=== PATIENT | female | born 1980 | race Caucasian/White ===

== ENCOUNTER → 2016-10-29 | Outpatient (CLI) | payer OTHER ==
[~2016-10-29] MED LIST: ALPRAZOLAM0.5 M3 PO; ATIVAN0.5 MG PO; CATAPRES-TTS 10.1 MG PO; CIPRODEX 0.3%-7.5 ML OT; CLARITIN10 MG PO; CLEOCIN150 MG PO; CLINDAMYCIN150 MG PO; DEPAKOTE ER500 MG PO; HYDROCODONE BIT1 T11 PO; INVANZ1 GM IV; KLONOPIN0.5 MG PO; LATU40TA1 PO; LEXAPRO5 M1 PO; LITHIUM CARBON300 M2 PO; MACROBID100 M1 PO; MEDROL DOSEPAK4 MG PO; MELATONIN5 M2 PO; MIRALAX POWDER17 G1 PO; MOTRIN800 MG PO; Meclizine25 MG PO; NAPROSYN500 MG PO; NORCO 5-325 TA1 EACH PO; PERCOCET 325 MG1 TA2 PO; Peridex 473 ML473 ML PO; UNASYN 3GM3 GM/100 M IV; VALIUM5 MG PO; VICODIN 5/500 505 MG PO; VISTARIL50 MG PO; ZOFRAN ODT4 MG SL; ZOFRAN4 MG PO; ZOLPIDEM TARTRAT5 MG PO
[2016-10-29 14:53] LABS: BASO % 0.3 % (0.0-1.0); EOS # 0.2 10*3/uL (0.0-0.4); EOS % 1.5 % (1.0-4.0); HEMATOCRIT 39.5 % (37.0-47.0); HEMOGLOBIN 13.8 g/dl (12.0-16.0); LYMPH # 3.1 10*3/uL (1.3-4.4); LYMPH % 29.8 % (27.0-41.0); MEAN CORPUSCULAR HGB 31.1 pg (27.0-31.0); MEAN CORPUSCULAR HGB CONC 34.9 g/dl (33.0-37.0); MEAN PLATELET VOLUME 9.7 fl (9.6-12.3); MONO # 0.4 10*3/uL (0.1-1.0); MONO % 4.2 % (3.0-9.0); NEUT # 6.7 10*3/uL (2.3-7.9); PLATELET COUNT AUTOMATED 200 10*3/uL (130-400); RED BLOOD COUNT 4.44 10*6/uL (4.10-5.10); RED CELL DISTRI WIDTH 12.8 % (0-14.5); WHITE BLOOD COUNT 10.4 10*3/uL (4.8-10.8)
[2016-10-29 15:27] LABS: ALBUMIN 3.4 gm/dl (3.1-4.5); ALKALINE PHOSPHATASE 115 U/L (45-117); BUN 10 mg/dl (7-24); CHLORIDE 108 mmol/L (98-107); POTASSIUM 3.7 mmol/L (3.5-5.1); SGOT/AST 22 IU/L (3-35); SGPT/ALT 29 U/L (12-78); SODIUM 142 mmol/L (136-145); TOTAL PROTEIN 7.5 gm/dL (6.4-8.2)
[2016-10-29 16:14] LABS: VITAMIN D, 25-HYDROXY 32.7 ng/mL (30-100)
== END | disposition home or self-care (01) ==
LOC: LAB 14:32
PROVIDERS: Physician Assistant
DX: Z51.81 Encounter for therapeutic drug level monitoring (principal); E55.9 Vitamin D deficiency, unspecified; Z79.899 Other long term (current) drug therapy

== ENCOUNTER 2016-11-02 16:26 | Emergency (ER) | payer OTHER ==
[~2016-11-02] VITALS: Ht 175.2 cm; Wt 156.9 kg
[2016-11-02 16:31] VITALS: BP 170/90
[2016-11-02] MEDS ORDERED: ANAPROX DS550 MG PO (18:24)
== END 2016-11-02 18:22 | disposition home or self-care (01) ==
LOC: ED 16:26
DX: S00.83XA Contusion of other part of head, initial encounter (principal); F17.200 Nicotine dependence, unspecified, uncomplicated; Z88.1 Allergy status to other antibiotic agents; Z88.6 Allergy status to analgesic agent; Z79.899 Other long term (current) drug therapy; Y04.0XXA Assault by unarmed brawl or fight, initial encounter; Y93.89 Activity, other specified; Y92.89 Other specified places as the place of occurrence of the external cause; Y99.8 Other external cause status

== ENCOUNTER → 2017-05-27 | Outpatient (CLI) | payer OTHER ==
[~2017-05-27] MED LIST changes: +ANAPROX DS550 MG PO
== END | disposition home or self-care (01) ==
LOC: RAD 13:38
DX: M19.90 Unspecified osteoarthritis, unspecified site (principal)

== ENCOUNTER 2018-03-21 20:14 | Emergency (ER) | payer OTHER ==
[~2018-03-21] VITALS: Ht 175.2 cm; Wt 145.6 kg
[2018-03-21 20:17] VITALS: BP 118/76
[2018-03-21 20:34] LABS: BILIRUBIN NEGATIVE (NEGATIVE); BLOOD 2+ (NEGATIVE); CLARITY CLOUDY (CLEAR); COLOR YELLOW (YELLOW); GLUCOSE NEGATIVE (NEGATIVE); KETONE TRACE (NEGATIVE); LEUKO ESTERASE 3+ (NEGATIVE); NITRITE POSITIVE (NEGATIVE); PH 5.5 (5.0-9.0)
[2018-03-21 20:43] LABS: BACTERIA 2+; RBC 21-30 rbc/hpf (0-2); WBC TNTC wbc/hpf (0-5)
== END 2018-03-21 20:53 | disposition home or self-care (01) ==
LOC: ED 20:14
PROVIDERS: Student in an Organized Health Care Education/Training Program
DX: N39.0 Urinary tract infection, site not specified (principal); H92.01 Otalgia, right ear; M86.9 Osteomyelitis, unspecified; F43.12 Post-traumatic stress disorder, chronic; Z88.6 Allergy status to analgesic agent; Z88.1 Allergy status to other antibiotic agents; Z79.899 Other long term (current) drug therapy; Z87.891 Personal history of nicotine dependence

== ENCOUNTER 2018-05-20 10:02 | Emergency (ER) | payer OTHER ==
[~2018-05-20] VITALS: Ht 175.2 cm; Wt 151.5 kg
[2018-05-20 10:02] VITALS: BP 129/66
[2018-05-20] MEDS ORDERED: LITHIUM CARBON300 MG PO (10:10)
[2018-05-20] MEDS ORDERED: LITHIUM CARBON600 MG PO (10:10)
[2018-05-20] MEDS ORDERED: CORTISPORIN SUS10 ML OT (10:59)
[2018-09-26] MEDS ORDERED: CORTISPORIN SUS10 ML OT (11:57)
== END 2018-05-20 11:06 | disposition home or self-care (01) ==
LOC: ED 10:02
DX: T16.2XXA Foreign body in left ear, initial encounter (principal); F17.200 Nicotine dependence, unspecified, uncomplicated; Z88.1 Allergy status to other antibiotic agents; Z88.6 Allergy status to analgesic agent; Z79.899 Other long term (current) drug therapy; Z90.49 Acquired absence of other specified parts of digestive tract; X58.XXXA Exposure to other specified factors, initial encounter; Y93.89 Activity, other specified; Y92.89 Other specified places as the place of occurrence of the external cause; Y99.8 Other external cause status

== ENCOUNTER 2018-06-29 15:42 | Emergency (ER) | payer OTHER ==
[~2018-06-29] VITALS: Ht 175.2 cm; Wt 156.0 kg
[~2018-06-29 15:42] MED LIST changes: +CORTISPORIN SUS10 ML OT; +LITHIUM CARBON300 MG PO; +LITHIUM CARBON600 MG PO
[2018-06-29 15:44] VITALS: BP 150/82
[2018-06-29 16:02] LABS: BILIRUBIN NEGATIVE (NEGATIVE); BLOOD 3+ (NEGATIVE); CLARITY CLOUDY (CLEAR); COLOR YELLOW (YELLOW); GLUCOSE NEGATIVE (NEGATIVE); KETONE NEGATIVE (NEGATIVE); LEUKO ESTERASE 2+ (NEGATIVE); NITRITE NEGATIVE (NEGATIVE); UROBILINOGEN >= 8.0 E.U./dl (0.2-1.0)
[2018-06-29 16:09] LABS: BACTERIA 2+; RBC 31-40 rbc/hpf (0-2); WBC TNTC wbc/hpf (0-5)
[2018-06-29] MEDS ORDERED: CEFUROXIME AXE500 MG PO (16:25)
[2018-06-29] MEDS ORDERED: PYRIDIUM200 M1 PO (16:25)
[2018-09-26] MEDS ORDERED: CORTISPORIN SUS10 ML OT (11:57)
== END 2018-06-29 16:28 | disposition home or self-care (01) ==
LOC: ED 15:42
PROVIDERS: Nurse Practitioner Family
DX: N39.0 Urinary tract infection, site not specified (principal); F17.200 Nicotine dependence, unspecified, uncomplicated; Z88.1 Allergy status to other antibiotic agents; Z88.6 Allergy status to analgesic agent; Z79.899 Other long term (current) drug therapy; Z90.49 Acquired absence of other specified parts of digestive tract

== ENCOUNTER 2018-07-18 23:44 | Emergency (ER) | payer OTHER ==
[~2018-07-18] VITALS: Ht 175.2 cm; Wt 149.7 kg
[~2018-07-18 23:44] MED LIST changes: +CEFUROXIME AXE500 MG PO; +PYRIDIUM200 M1 PO
[2018-07-18 23:47] VITALS: BP 140/68
[2018-07-19] MEDS ORDERED: CORTISPORIN SUS10 ML OT (00:32)
[2018-09-26] MEDS ORDERED: CORTISPORIN SUS10 ML OT (11:57)
== END 2018-07-19 00:51 | disposition home or self-care (01) ==
LOC: ED 23:44
DX: T16.2XXA Foreign body in left ear, initial encounter (principal); F17.200 Nicotine dependence, unspecified, uncomplicated; Z88.1 Allergy status to other antibiotic agents; Z88.6 Allergy status to analgesic agent; Z79.899 Other long term (current) drug therapy; X58.XXXA Exposure to other specified factors, initial encounter; Y93.89 Activity, other specified; Y92.89 Other specified places as the place of occurrence of the external cause; Y99.8 Other external cause status

== ENCOUNTER 2018-10-06 22:38 | Emergency (ER) | payer OTHER ==
[~2018-10-06] VITALS: Ht 175.2 cm; Wt 149.7 kg
--- NOTE | ~2018-10-06 | EKG ---
[place], [place] ELECTROCARDIOGRAM REPORT NAME: TREMAINE HURST UNIT #: [id number] ROOM: DOCTOR: EPIPHANY DRAFT REPORT BIRTHDATE: [birth year] [facility] Test Date: 2018-10-06 Test Time: 22:51:03 Pat Name: TREMAINE HURST Department: ER Room: Gender: F Echocardiograph Technician: Shira Nguyen : 1980 Requested By: LISETH WONG Order Number: [id number] Reading MD: Cam Carlos MD Measurements Intervals [place] Rate: 84 P: 49 UT: 170 QRS: 56 QRSD: 82 T: 54 QT: 397 QTc: 470 Interpretive Statements Sinus rhythm Nonspecific ST T changes Electronically Signed On 10-10-2018 8:39:28 PDT by Cam Carlos MD CM:EKGRPT:ELECTROCARDIOGRAM REPORT [id number] LISETH GARCIA DRAFT REPORT LISETH WONG DO
[2018-10-06 23:34] LABS: BASO % 0.3 % (0.0-1.0); EOS # 0.1 10*3/uL (0.0-0.4); EOS % 1.3 % (1.0-4.0); HEMOGLOBIN 13.6 g/dl (12.0-16.0); LYMPH # 3.5 10*3/uL (1.3-4.4); LYMPH % 31.3 % (27.0-41.0); MEAN CELL VOLUME 91.8 fl (81.0-99.0); MEAN CORPUSCULAR HGB CONC 34.9 g/dl (33.0-37.0); MEAN PLATELET VOLUME 9.5 fl (9.6-12.3); MONO # 0.6 10*3/uL (0.1-1.0); MONO % 5.4 % (3.0-9.0); NEUT # 6.9 10*3/uL (2.3-7.9); NEUT % 61.4 % (47.0-73.0); PLATELET COUNT AUTOMATED 234 10*3/uL (130-400); RED BLOOD COUNT 4.25 10*6/uL (4.10-5.10); RED CELL DISTRI WIDTH 13.3 % (0-14.5); WHITE BLOOD COUNT 11.1 10*3/uL (4.8-10.8)
[2018-10-06 23:45] LABS: ACT PARTIAL THROMBO TIME 27.3 SECONDS (20.0-32.1); INTERNATIONAL NORM RATIO 0.9 (2.0-3.5)
[2018-10-06 23:50] LABS: ALBUMIN 3.2 gm/dl (3.1-4.5); ALKALINE PHOSPHATASE 117 U/L (45-117); BUN 12 mg/dl (7-24); CHLORIDE 106 mmol/L (98-107); CREATININE 0.84 mg/dL (0.55-1.02); POTASSIUM 3.8 mmol/L (3.5-5.1); SGOT/AST 19 IU/L (3-35); SGPT/ALT 23 U/L (12-78); SODIUM 139 mmol/L (136-145); TOTAL PROTEIN 7.3 gm/dL (6.4-8.2)
[2018-10-06 23:56] LABS: TROPONIN I < 0.015 ng/ml (<0.045)
[2018-10-07 00:21] VITALS: BP 134/84
== END 2018-10-07 01:26 | disposition home or self-care (01) ==
LOC: ED 22:38
PROVIDERS: Student in an Organized Health Care Education/Training Program
DX: R07.89 Other chest pain (principal); R11.2 Nausea with vomiting, unspecified; R42 Dizziness and giddiness; R51 Headache; R06.02 Shortness of breath; R68.83 Chills (without fever); M86.9 Osteomyelitis, unspecified; F41.9 Anxiety disorder, unspecified; F17.200 Nicotine dependence, unspecified, uncomplicated; Z79.899 Other long term (current) drug therapy; Z88.1 Allergy status to other antibiotic agents; Z88.6 Allergy status to analgesic agent

== ENCOUNTER 2018-10-09 01:27 | Emergency (ER) | payer OTHER ==
[~2018-10-09] VITALS: Wt 150.1 kg
[2018-10-09 01:28] VITALS: BP 183/85
[2018-10-09] MEDS ORDERED: CEPHALEXIN500 M1 PO (01:46)
[2018-10-09] MEDS ORDERED: ANTIBIOTIC28.4 GM T (01:46)
== END 2018-10-09 02:13 | disposition home or self-care (01) ==
LOC: ED 01:27
DX: L73.9 Follicular disorder, unspecified (principal); F17.200 Nicotine dependence, unspecified, uncomplicated; Z88.1 Allergy status to other antibiotic agents; Z88.6 Allergy status to analgesic agent; Z79.899 Other long term (current) drug therapy

== ENCOUNTER 2018-12-24 19:45 | Emergency (ER) | payer OTHER ==
[~2018-12-24] VITALS: Ht 175.2 cm; Wt 152.0 kg
[~2018-12-24 19:45] MED LIST changes: +ANTIBIOTIC28.4 GM T; +CEPHALEXIN500 M1 PO
[2018-12-24 20:33] LABS: BASO % 0.3 % (0.0-1.0); EOS # 0.2 10*3/uL (0.0-0.4); EOS % 1.6 % (1.0-4.0); HEMATOCRIT 38.3 % (37.0-47.0); LYMPH # 3.2 10*3/uL (1.3-4.4); LYMPH % 31.7 % (27.0-41.0); MEAN CELL VOLUME 92.7 fl (81.0-99.0); MEAN CORPUSCULAR HGB 31.5 pg (27.0-31.0); MEAN CORPUSCULAR HGB CONC 33.9 g/dl (33.0-37.0); MONO # 0.5 10*3/uL (0.1-1.0); MONO % 4.9 % (3.0-9.0); NEUT # 6.2 10*3/uL (2.3-7.9); NEUT % 61.2 % (47.0-73.0); PLATELET COUNT AUTOMATED 212 10*3/uL (130-400); RED BLOOD COUNT 4.13 10*6/uL (4.10-5.10); RED CELL DISTRI WIDTH 13.2 % (0-14.5); WHITE BLOOD COUNT 10.1 10*3/uL (4.8-10.8)
[2018-12-24 20:40] LABS: BILIRUBIN NEGATIVE (NEGATIVE); BLOOD NEGATIVE (NEGATIVE); CLARITY CLEAR (CLEAR); COLOR YELLOW (YELLOW); GLUCOSE NEGATIVE (NEGATIVE); KETONE NEGATIVE (NEGATIVE); LEUKO ESTERASE NEGATIVE (NEGATIVE); NITRITE NEGATIVE (NEGATIVE); PH 5.5 (5.0-9.0); SPECIFIC GRAVITY >= 1.030 (1.005-1.030); UROBILINOGEN 0.2 E.U./dl (0.2-1.0)
[2018-12-24 20:48] LABS: ALBUMIN 2.9 gm/dl (3.1-4.5); ALKALINE PHOSPHATASE 114 U/L (45-117); BUN 7 mg/dl (7-24); CHLORIDE 113 mmol/L (98-107); CREATININE 0.88 mg/dL (0.55-1.02); LIPASE 88 U/L (73-393); POTASSIUM 3.8 mmol/L (3.5-5.1); SGOT/AST 11 IU/L (3-35); SGPT/ALT 19 U/L (12-78); SODIUM 142 mmol/L (136-145); TOTAL PROTEIN 6.8 gm/dL (6.4-8.2)
[2018-12-24 20:53] LABS: BACTERIA 1+; WBC 0-2 wbc/hpf (0-5)
[2018-12-24 21:50] VITALS: BP 114/60
[2018-12-24] MEDS ORDERED: SEPTDS PO (22:21)
== END 2018-12-24 22:25 | disposition home or self-care (01) ==
LOC: ED 19:45
PROVIDERS: Nurse Practitioner Family
DX: J32.0 Chronic maxillary sinusitis (principal); F17.200 Nicotine dependence, unspecified, uncomplicated; Z98.890 Other specified postprocedural states; Z90.49 Acquired absence of other specified parts of digestive tract; Z86.14 Personal history of Methicillin resistant Staphylococcus aureus infection; Z79.899 Other long term (current) drug therapy; Z88.1 Allergy status to other antibiotic agents; Z88.6 Allergy status to analgesic agent

== ENCOUNTER 2018-12-26 11:53 | Emergency (ER) | payer OTHER ==
[~2018-12-26] VITALS: Ht 175.2 cm; Wt 149.7 kg
[~2018-12-26 11:53] MED LIST changes: +SEPTDS PO
[2018-12-26 11:55] VITALS: BP 165/82
[2018-12-26] MEDS ORDERED: ZOFRAN4 MG PO (12:12)
[2018-12-26] MEDS ORDERED: CLINDAMYCIN HC300 MG PO (12:12)
== END 2018-12-26 12:18 | disposition home or self-care (01) ==
LOC: ED 11:53
DX: K02.9 Dental caries, unspecified (principal); J01.00 Acute maxillary sinusitis, unspecified; M86.9 Osteomyelitis, unspecified; F17.200 Nicotine dependence, unspecified, uncomplicated; Z90.49 Acquired absence of other specified parts of digestive tract; Z88.1 Allergy status to other antibiotic agents; Z88.8 Allergy status to other drugs, medicaments and biological substances; Z79.2 Long term (current) use of antibiotics; Z79.899 Other long term (current) drug therapy

== ENCOUNTER → 2020-05-14 | Outpatient (CLI) | payer OTHER ==
[~2020-05-14] MED LIST changes: +CLINDAMYCIN HC300 MG PO
== END | disposition home or self-care (01) ==
LOC: RAD 11:40
PROVIDERS: ATTEND Family Medicine
DX: M51.37 Other intervertebral disc degeneration, lumbosacral region (principal); M85.88 Other specified disorders of bone density and structure, other site

== ENCOUNTER → 2021-02-20 | Outpatient (CLI) | payer OTHER ==
[2021-02-20 16:58] LABS: ALBUMIN 3.1 gm/dl (3.1-4.5); ALKALINE PHOSPHATASE 143 U/L (45-117); BUN 17 mg/dl (7-24); CHLORIDE 106 mmol/L (98-107); CHOLESTEROL 189 mg/dL (<200); CREATININE 0.78 mg/dL (0.55-1.02); GAMMA GLUTAMYL TRANSPEPTIDASE 46 U/L (5-55); IRON 83 ug/dL (50-170); LDL CHOLESTEROL 103 mg/dL (9-159); POTASSIUM 3.9 mmol/L (3.5-5.1); SGOT/AST 14 IU/L (3-35); SGPT/ALT 25 U/L (12-78); SODIUM 140 mmol/L (136-145); TOTAL IRON BINDING CAPACITY 285 ug/dl (250-450); TOTAL PROTEIN 8.2 gm/dL (6.4-8.2); TRIGLYCERIDES 306 mg/dl (<150)
[2021-02-20 16:58] LABS: BILIRUBIN Negative (Negative); BLOOD Negative (Negative); CLARITY Cloudy (Clear); COLOR Yellow (Yellow); GLUCOSE Negative (Negative); KETONE Trace (Negative); PH 5.5 (4.5-8.0); SPECIFIC GRAVITY >= 1.030 (1.001-1.030)
[2021-02-20 16:59] LABS: LEUKO ESTERASE 1+ (Negative); NITRITE Negative (Negative)
[2021-02-20 17:01] LABS: BACTERIA 3+
[2021-02-20 17:02] LABS: MUCOUS 1+
[2021-02-20 17:32] LABS: FERRITIN 151.6 ng/mL (10.0-291.0); VITAMIN D, 25-HYDROXY 29.4 ng/mL (30-100)
[2021-02-20 19:51] LABS: BASO % 0.3 % (0.0-1.0); EOS # 0.2 10*3/uL (0.0-0.4); EOS % 1.5 % (1.0-4.0); HEMATOCRIT 42.5 % (37.0-47.0); LYMPH # 3.6 10*3/uL (1.3-4.4); LYMPH % 30.4 % (27.0-41.0); MEAN CELL VOLUME 92.6 fl (81.0-99.0); MEAN CORPUSCULAR HGB 31.2 pg (27.0-31.0); MEAN CORPUSCULAR HGB CONC 33.6 g/dl (33.0-37.0); MONO # 0.4 10*3/uL (0.1-1.0); MONO % 3.7 % (3.0-9.0); NEUT # 7.5 10*3/uL (2.3-7.9); NEUT % 63.5 % (47.0-73.0); PLATELET COUNT AUTOMATED 271 10*3/uL (130-400); RED BLOOD COUNT 4.59 10*6/uL (4.10-5.10); RED CELL DISTRI WIDTH 13.2 % (0-14.5); RETICULOCYTE % 2.24 % (0.50-2.50); WHITE BLOOD COUNT 11.9 10*3/uL (4.8-10.8)
== END | disposition home or self-care (01) ==
LOC: LAB 15:55
PROVIDERS: ATTEND Family Medicine
DX: E55.9 Vitamin D deficiency, unspecified (principal); R79.89 Other specified abnormal findings of blood chemistry; R53.83 Other fatigue; R74.8 Abnormal levels of other serum enzymes; E78.5 Hyperlipidemia, unspecified

== ENCOUNTER 2022-03-11 20:15 | Emergency (ER) | payer OTHER ==
[~2022-03-11] VITALS: Ht 175.2 cm; Wt 146.5 kg
[2022-03-11 20:20] VITALS: BP 150/78
[2022-03-11] MEDS ORDERED: REXULTI3 MG PO (20:23)
[2022-03-11] MEDS ORDERED: NATURE'S BLEND F1 MG PO (20:23)
[2022-03-11] MEDS ORDERED: PRISTIQ50 MG PO (20:24)
[2022-03-11] MEDS ORDERED: VITAMIN D250 MCG PO (20:24)
== END 2022-03-11 22:27 | disposition home or self-care (01) ==
LOC: ED 20:15
DX: S80.11XA Contusion of right lower leg, initial encounter (principal); Z88.8 Allergy status to other drugs, medicaments and biological substances; Z79.899 Other long term (current) drug therapy; Z90.49 Acquired absence of other specified parts of digestive tract; Z98.890 Other specified postprocedural states; Z87.891 Personal history of nicotine dependence; X58.XXXA Exposure to other specified factors, initial encounter; Y93.89 Activity, other specified; Y92.89 Other specified places as the place of occurrence of the external cause; Y99.8 Other external cause status

== ENCOUNTER → 2023-05-27 | Outpatient (CLI) | payer OTHER ==
[~2023-05-27] MED LIST changes: +CIPRO500 MG PO; +NATURE'S BLEND F1 MG PO; +PRISTIQ50 MG PO; +REXULTI3 MG PO; +VITAMIN D250 MCG PO
== END | disposition home or self-care (01) ==
LOC: MAMMO 01:29
PROVIDERS: ATTEND Nurse Practitioner Women's Health
DX: Z12.31 Encounter for screening mammogram for malignant neoplasm of breast (principal); N64.9 Disorder of breast, unspecified; D25.9 Leiomyoma of uterus, unspecified; N83.292 Other ovarian cyst, left side

== ENCOUNTER 2023-08-29 10:53 | Emergency (ER) | payer OTHER ==
[~2023-08-29] VITALS: Ht 172.7 cm; Wt 149.7 kg
[2023-08-29 11:04] VITALS: BP 147/82
[2023-08-29] MEDS ORDERED: MORPHINE Sulfate 2 MG/ML SYR IV PRN (11:20)
[2023-08-29] MEDS ORDERED: SODIUM CHLORIDE 0.9% 1,000 ML IV ONE (11:20)
[2023-08-29] MEDS ORDERED: Ondansetron Hydrochloride 4 MG/2 ML VIAL IV ONE (11:20)
[2023-08-29 11:46] LABS: BASO % 0.2 % (0.0-1.0); EOS # 0.1 10*3/uL (0.0-0.4); EOS % 1.3 % (1.0-4.0); HEMATOCRIT 41.4 % (37.0-47.0); LYMPH # 3.2 10*3/uL (1.3-4.4); LYMPH % 30.3 % (27.0-41.0); MEAN CELL VOLUME 91.6 fl (81.0-99.0); MEAN CORPUSCULAR HGB CONC 33.8 g/dl (33.0-37.0); MEAN PLATELET VOLUME 9.1 fl (9.6-12.3); MONO # 0.4 10*3/uL (0.1-1.0); NEUT # 6.7 10*3/uL (2.3-7.9); NEUT % 63.8 % (47.0-73.0); PLATELET COUNT AUTOMATED 267 10*3/uL (130-400); RED BLOOD COUNT 4.52 10*6/uL (4.10-5.10); RED CELL DISTRI WIDTH 13.6 % (0-14.5); WHITE BLOOD COUNT 10.4 10*3/uL (4.8-10.8)
[2023-08-29] MEDS ORDERED: IOHEXOL 300 MG/ML 100 ML VIAL IV ONE (11:50)
[2023-08-29] MEDS ORDERED: IOHEXOL 300 MG/ML 100 ML VIAL ONE (12:02)
[2023-08-29 12:10] LABS: ALKALINE PHOSPHATASE 122 U/L (46-116); BUN 10 mg/dl (9-23); CHLORIDE 110 mmol/L (98-107); POTASSIUM 4.1 mmol/L (3.4-5.1); SGPT/ALT 17 U/L (5-49)
[2023-08-29] MEDS ORDERED: MELOXICAM15 MG PO ×2 (14:17→14:21)
[2023-08-29] MEDS ORDERED: CLINDAMYCIN HC300 MG PO (14:19)
[2023-08-29] MEDS ORDERED: CIPROFLOXACIN H10 ML OT (14:21)
== END 2023-08-29 14:20 | disposition home or self-care (01) ==
LOC: ED 10:53
PROVIDERS: Emergency Medicine
DX: H66.91 Otitis media, unspecified, right ear (principal); K04.7 Periapical abscess without sinus; H60.91 Unspecified otitis externa, right ear; F17.200 Nicotine dependence, unspecified, uncomplicated; F10.10 Alcohol abuse, uncomplicated; Z88.1 Allergy status to other antibiotic agents; Z88.6 Allergy status to analgesic agent; Z90.49 Acquired absence of other specified parts of digestive tract; Z98.890 Other specified postprocedural states

== ENCOUNTER 2023-09-27 13:27 | Inpatient (IN) | payer OTHER ==
[~2023-09-27] VITALS: Ht 175.2 cm; Wt 148.8 kg
[~2023-09-27 13:27] MED LIST changes: +CIPROFLOXACIN H10 ML OT; +MELOXICAM15 MG PO
[2023-09-27] MEDS ORDERED: SODIUM CHLORIDE 0.9% 1,000 ML IV ONE (13:30)
[2023-09-27] MEDS ORDERED: Midazolam Hydrochloride 2 MG/2 ML VIAL IV ONE (13:35)
[2023-09-27 13:39] VITALS: BP 129/86
[2023-09-27] MEDS ORDERED: XANAX1 MG PO (13:44)
[2023-09-27 13:45] LABS: BASO % 0.2 % (0.0-1.0); EOS # 0.1 10*3/uL (0.0-0.4); EOS % 0.9 % (1.0-4.0); LYMPH # 3.5 10*3/uL (1.3-4.4); LYMPH % 27.2 % (27.0-41.0); MEAN CELL VOLUME 89.9 fl (81.0-99.0); MEAN CORPUSCULAR HGB 31.4 pg (27.0-31.0); MEAN CORPUSCULAR HGB CONC 34.9 g/dl (33.0-37.0); MONO # 0.5 10*3/uL (0.1-1.0); MONO % 3.9 % (3.0-9.0); NEUT # 8.6 10*3/uL (2.3-7.9); NEUT % 67.3 % (47.0-73.0); PLATELET COUNT AUTOMATED 208 10*3/uL (130-400); RED BLOOD COUNT 4.56 10*6/uL (4.10-5.10); RED CELL DISTRI WIDTH 13.6 % (0-14.5); WHITE BLOOD COUNT 12.7 10*3/uL (4.8-10.8)
[2023-09-27 14:12] LABS: ALKALINE PHOSPHATASE 136 U/L (46-116); BUN 9 mg/dl (9-23); CHLORIDE 106 mmol/L (98-107); POTASSIUM 3.4 mmol/L (3.4-5.1); SGPT/ALT 19 U/L (5-49); TOTAL PROTEIN 7.3 gm/dL (6.0-8.0)
[2023-09-27] MEDS ORDERED: SODIUM CHLORIDE 0.9% 1,000 ML IV SCH (15:10)
[2023-09-27] MEDS ORDERED: ATORVASTATIN CALCIUM 80 MG TAB PO SCH ×2 (15:40→22:00)
[2023-09-27] MEDS ORDERED: HEPARIN SODIUM 25,000 UNITS/250 ML BAG IV SCH (15:40)
[2023-09-27] MEDS ORDERED: ASPIRIN, CHEWABLE 81 MG TAB PO ONE (15:40)
[2023-09-27] MEDS ORDERED: NITROGLYCERIN 1 IN PACKET T SCH (15:40)
[2023-09-27] MEDS ORDERED: AZITHROMYCIN 250 ML IV ONE (15:50)
[2023-09-27] MEDS ORDERED: Ceftriaxone Sodium 1 GM/10 ML SYR IV ONE (15:50)
[2023-09-27 15:58] LABS: ACT PARTIAL THROMBO TIME 28.2 SECONDS (20.0-32.1)
[2023-09-27] MEDS ORDERED: Ondansetron Hydrochloride 4 MG/2 ML VIAL IV PRN (16:25)
[2023-09-27] MEDS ORDERED: ACETAMINOPHEN 325 MG TAB PO PRN (16:25)
[2023-09-27] MEDS ORDERED: Magnesium Hydroxide 30 ML UDC PO PRN (16:25)
[2023-09-27] MEDS ORDERED: HEPARIN SODIUM 250 ML IV SCH (16:30)
[2023-09-27] MEDS ORDERED: Albuterol Sulf/Ipratropium 3 ML VIAL NEB SCH (16:35)
[2023-09-27] MEDS ORDERED: SODIUM CHLORIDE 0.9% 100 ML BAG IV ONE (16:35)
[2023-09-27] MEDS ORDERED: IOHEXOL 350 MG/ML 100 ML VIAL IV ONE (16:35)
[2023-09-27] MEDS ORDERED: Levalbuterol Hydrochloride 0.63 MG VIAL NEB SCH (16:40)
[2023-09-27 17:11] VITALS: BP 162/84
[2023-09-27] MEDS ORDERED: hydrOXYzine pamoate 25 MG CAP PO SCH (18:00)
[2023-09-27] MEDS ORDERED: ALPRAZolam 0.5 MG TAB PO SCH (18:00)
[2023-09-27 19:07] VITALS: BP 110/77
[2023-09-27 20:18] VITALS: BP 134/92
[2023-09-28] MEDS ORDERED: ASPIRIN ENTERIC COATED 81 MG TAB PO SCH (10:00)
[2023-09-28] MEDS ORDERED: Desvenlafaxine Succinate 50 MG TER PO SCH (10:00)
[2023-09-28] MEDS ORDERED: Ceftriaxone Sodium 1 GM in SYRINGE INFUSION 10 ML IV SCH (16:00)
[2023-09-28] MEDS ORDERED: AZITHROMYCIN 250 ML IV SCH (17:00)
== END 2023-09-28 01:41 | disposition short-term general hospital (02) | DRG 720 ==
LOC: ED 13:27 → EDHOLD 15:58
PROVIDERS: Internal Medicine; ADMIT Student in an Organized Health Care Education/Training Program; ATTEND Student in an Organized Health Care Education/Training Program
DX: A41.9 Sepsis, unspecified organism (principal); I21.4 Non-ST elevation (NSTEMI) myocardial infarction; J18.9 Pneumonia, unspecified organism; I26.99 Other pulmonary embolism without acute cor pulmonale; I82.431 Acute embolism and thrombosis of right popliteal vein; R73.9 Hyperglycemia, unspecified; F31.9 Bipolar disorder, unspecified; F43.10 Post-traumatic stress disorder, unspecified; F41.9 Anxiety disorder, unspecified; F17.200 Nicotine dependence, unspecified, uncomplicated; Z79.899 Other long term (current) drug therapy; Z79.01 Long term (current) use of anticoagulants; Z79.2 Long term (current) use of antibiotics; Z88.1 Allergy status to other antibiotic agents; Z88.0 Allergy status to penicillin; Z88.8 Allergy status to other drugs, medicaments and biological substances; Z91.09 Other allergy status, other than to drugs and biological substances; Z98.891 History of uterine scar from previous surgery; Z90.49 Acquired absence of other specified parts of digestive tract; Z90.721 Acquired absence of ovaries, unilateral; Z83.3 Family history of diabetes mellitus; Z82.49 Family history of ischemic heart disease and other diseases of the circulatory system

== ENCOUNTER → 2024-02-24 | Outpatient (CLI) | payer OTHER ==
[~2024-02-24] MED LIST changes: +IOHEXOL 350 MG/ML 100 ML VIAL IV ONE; +SODIUM CHLORIDE 0.9% 100 ML BAG IV ONE; +XANAX1 MG PO
== END | disposition home or self-care (01) ==
LOC: LAB 02:38 → US 14:00 → LAB 14:00
PROVIDERS: ATTEND Family Medicine
DX: R91.8 Other nonspecific abnormal finding of lung field (principal); Z86.711 Personal history of pulmonary embolism; Z86.718 Personal history of other venous thrombosis and embolism

== ENCOUNTER 2024-08-02 16:02 | Emergency (ER) | payer OTHER ==
[~2024-08-02] VITALS: Ht 175.2 cm; Wt 149.2 kg
[~2024-08-02 16:02] MED LIST changes: -IOHEXOL 350 MG/ML 100 ML VIAL IV ONE; -SODIUM CHLORIDE 0.9% 100 ML BAG IV ONE
[2024-08-02 16:12] VITALS: BP 135/94
[2024-08-02] MEDS ORDERED: LISSAMINE GREEN 1.5 MG STRIP OP ONE (16:15)
[2024-08-02] MEDS ORDERED: Tetracaine Hydrochloride 0.5% 4 ML BOT OPH ONE (16:15)
[2024-08-02] MEDS ORDERED: Ciprofloxacin Hydrochloride 0.3% OPHTHLAMIC BOTTLE OPH ONE (16:35)
== END 2024-08-02 16:45 | disposition home or self-care (01) ==
LOC: ED 16:02
DX: S05.02XA Injury of conjunctiva and corneal abrasion without foreign body, left eye, initial encounter (principal); F17.200 Nicotine dependence, unspecified, uncomplicated; Z79.899 Other long term (current) drug therapy; Z88.0 Allergy status to penicillin; Z88.1 Allergy status to other antibiotic agents; Z88.6 Allergy status to analgesic agent; Z90.49 Acquired absence of other specified parts of digestive tract; Z98.890 Other specified postprocedural states; X58.XXXA Exposure to other specified factors, initial encounter; Y93.89 Activity, other specified; Y92.89 Other specified places as the place of occurrence of the external cause; Y99.8 Other external cause status

== ENCOUNTER → 2024-12-11 | Outpatient (CLI) | payer OTHER ==
[2024-12-11 12:33] LABS: T3 UPTAKE 21.6 % (22.4-36.7); THYROXINE (T4) TOTAL 11.4 ug/dl (4.5-10.9)
[2024-12-11 12:38] LABS: VITAMIN D, 25-HYDROXY 37.0 ng/mL (30-100)
== END | disposition home or self-care (01) ==
LOC: LAB 11:46
DX: Z51.81 Encounter for therapeutic drug level monitoring (principal); Z79.899 Other long term (current) drug therapy

== ENCOUNTER → 2025-01-03 | Outpatient (CLI) | payer OTHER ==
[2025-01-03 12:09] LABS: BASO # 0.0 10*3/uL (0.0-0.1); BASO % 0.1 % (0.0-1.0); EOS # 0.0 10*3/uL (0.0-0.4); EOS % 0.2 % (1.0-4.0); MEAN CELL VOLUME 89.7 fl (81.0-99.0); MEAN CORPUSCULAR HGB 29.5 pg (27.0-31.0); MEAN PLATELET VOLUME 8.9 fl (9.6-12.3); MONO # 0.4 10*3/uL (0.1-1.0); MONO % 4.5 % (3.0-9.0); NEUT # 6.0 10*3/uL (2.3-7.9); NEUT % 65.9 % (47.0-73.0); NUCLEATED RED BLOOD CELL 0.0 % (0.0-0.0); NUCLEATED RED BLOOD CELL 0.0 10*3/uL (0.0-0.0); PLATELET COUNT AUTOMATED 238 10*3/uL (130-400); RED CELL DISTRI WIDTH 13.5 % (0-14.5)
[2025-01-03 12:36] LABS: BUN 14 mg/dl (9-23); LDL CHOLESTEROL 121 mg/dL (9-159); SGPT/ALT 23 U/L (5-49)
== END | disposition home or self-care (01) ==
LOC: LAB 11:49
PROVIDERS: ATTEND Nurse Practitioner Women's Health
DX: Z13.220 Encounter for screening for lipoid disorders (principal); E11.9 Type 2 diabetes mellitus without complications; N92.0 Excessive and frequent menstruation with regular cycle; R53.83 Other fatigue

== ENCOUNTER → 2025-01-22 | Outpatient (CLI) | payer OTHER ==
[~2025-01-22] MED LIST changes: +IOHEXOL 300 MG/ML 100 ML VIAL IV ONE; +IOHEXOL 300 MG/ML 100 ML VIAL ONE
== END | disposition home or self-care (01) ==
LOC: US 03:07
PROVIDERS: ATTEND Nurse Practitioner Women's Health
DX: D25.1 Intramural leiomyoma of uterus (principal); Z13.220 Encounter for screening for lipoid disorders; N83.201 Unspecified ovarian cyst, right side; R93.89 Abnormal findings on diagnostic imaging of other specified body structures; Z90.721 Acquired absence of ovaries, unilateral

== ENCOUNTER → 2025-02-20 | Outpatient (CLI) | payer OTHER ==
[~2025-02-20] MED LIST changes: -IOHEXOL 300 MG/ML 100 ML VIAL IV ONE; -IOHEXOL 300 MG/ML 100 ML VIAL ONE
== END | disposition home or self-care (01) ==
LOC: US 02-08 15:00
PROVIDERS: ATTEND Family Medicine
DX: E04.2 Nontoxic multinodular goiter (principal)